=== PATIENT | female | born 1950 | race Caucasian/White ===

== ENCOUNTER 2023-07-19 11:52 | Outpatient (OUT) | payer MEDICARE, BC, SELFPAY ==
--- NOTE | 2023-07-19 11:53 | MM_ITS ---
Patient Name: VANESSA TERRELL MR#: [id number] : 1950 Exam Date: 07/19/2023 Ordering Doctor: DR PATRICIA SILVA D.O. RADIOLOGY REPORT PROCEDURE: MM TOMOSYNTHESIS SCREENING BI COMPARISON: MG MAMM JOSSELINE DIAG W CAD, 04/25/2019. MG MAMM SCREEN 3D JOSSELINE CAD, 07/07/2022. INDICATIONS: Screening Calculator Name NCI Breast Cancer Risk Assessment Tool 5 Year Breast Cancer Risk 1.80% Lifetime Breast Cancer Risk 4.10% Personal Breast Cancer No Personal Ovarian Cancer No Treatments None Family Cancers Aunt-maternal with breast cancer at age ~37. LOCATION: [facility] BREAST COMPOSITION: The breasts are almost entirely fatty. FINDINGS: DIAGNOSTIC CATEGORY 1--NEGATIVE. NO CHANGE FROM COMPARISON ASSESSMENT. Scattered benign-appearing nodules are present. Scattered benign-appearing calcifications are present. Scattered benign-appearing lymph nodes are present. RIGHT BREAST: No significant suspicious finding. LEFT BREAST: No significant suspicious finding. RECOMMENDATIONS: ROUTINE MAMMOGRAM AND CLINICAL EVALUATION IN 12 MONTHS. PLEASE NOTE: A NORMAL MAMMOGRAM DOES NOT EXCLUDE THE POSSIBILITY OF BREAST CANCER. A CLINICALLY SUSPICIOUS PALPABLE LUMP SHOULD BE BIOPSIED. Dictated by: Alex Harmon MD on 07/19/2023 at 13:32 Approved by: Alex Harmon MD on 07/19/2023 at 13:34
== END 2023-07-19 11:53 | disposition home or self-care (01) ==
LOC: MAMMO 11:52
PROVIDERS: PCP Internal Medicine; Visit Provider Internal Medicine
DX: Z12.31 Encounter for screening mammogram for malignant neoplasm of breast (principal); Z80.3 Family history of malignant neoplasm of breast
CPT/HCPCS: 77063; 77067

== ENCOUNTER 2024-08-06 12:54 | Outpatient (RCR) | payer MEDICARE, BC, SELFPAY | END 2024-09-17 10:35 | disposition home or self-care (01) | LOC: PT 12:54 | PROVIDERS: PCP Internal Medicine; Visit Provider Internal Medicine | DX: M25.561 Pain in right knee (principal); M25.562 Pain in left knee; R53.1 Weakness | CPT/HCPCS: 97110; 97140; 97161; 97530 ==

== ENCOUNTER 2024-08-28 08:45 | Outpatient (OUT) | payer MEDICARE, BC, SELFPAY ==
--- NOTE | 2024-08-28 | PCN_ITS ---
CARDIAC STRESS TEST Requesting Physician: < > Procedure Date: 08/28/2024 REASON FOR TEST: Shortness of breath and pre-op clearance. Patient presented to the lab in sinus rhythm. At baseline, the heart rate was 69 with a resting blood pressure of 134/77 mm/Hg. Resting EKG showed sinus rhythm with normal intervals and normal R-wave progression. With infusion of vasodilator, the peak heart rate achieved was 81 beats per minute, with a blood pressure of 134/77 mm/Hg, achieving 56% of the expected heart rate. With infusion of vasodilator, no ST segment changes of ischemia were noted. IMPRESSION: 1. No EKG evidence of ischemia on stress test. 2. Occasional PVCs noted. 3. Perfusion portion of the stress test to be dictated separately by radiologist. DEYVI
--- NOTE | 2024-08-28 08:15 | NM_ITS ---
Patient Name: VANESSA TERRELL MR#: [id number] : 1950 Exam Date: 08/28/2024 Ordering Doctor: DR PATRICIA SILVA D.O. RADIOLOGY REPORT PROCEDURE: NM MARION PERF SPECT REST STR COMPARISON: None. INDICATIONS: PRE PROCEDURE CARDIAC CLEARANCE, DYSPNEA, HYPERTENSION TECHNIQUE: Exam Description: Stress/Rest one day protocol gated SPECT Rest Imagin.0 mCi Tc-99m Cardiolite IV on 08/28/2024 Stress Imaging 29.4 mCi Tc-99m Cardiolite IV on 08/28/2024 Exercise Protocol: 0.4 mg Lexiscan given IV Heart Rate (bpm): Rest: 69 Max: 81 PMHR: 56 Blood Pressure: Rest: 134/75 Max: 134/75 Symptoms: Rest and peak stress ECG findings were pending and the exercise portion of the study was pending per attending physician [facility] . For more details please see separate cardiac stress test report. FINDINGS: QUALITY OF STUDY: Good PERFUSION DEFECT: None LOCATION: SIZE: SEVERITY: TYPE: WALL MOTION: Normal LV SIZE:EDV 56 mL. TID / TCD: 1.0 LVEF: Calculated EF 74%. SUMMARY: Myocardial perfusion imaging study CONCLUSION: Normal myocardial perfusion stress test without evidence of ischemia or infarction Normal left ventricular systolic function, ejection fraction 74% No transient ischemic dilatation, TID 1.0 EKG portion of stress test is reported separately Dictated by: Mohsen Lira MD on 08/28/2024 at 19:49 Approved by: Mohsen Lira MD on 08/28/2024 at 19:52
--- OUTSIDE RECORDS SUMMARY | 2024-08-28 08:47 | XMS_ITS | Referral Summary ---
Author Organization [facility] Address [address] [place] [address] Care Team Providers Care Senior Structural Engineer Name Role Phone Unavailable Primary Care Provider Unavailabl e Social History Tobacco Use Types Packs/Day Years Used Date Smoking Tobacco: Never Assessed Sex and Gender Information Value Date Recorded Sex Assigned at Not on file Gender Identity Not on file Sexual Orientation Not on file Plan of Treatment Upcoming Encounters Date Type Department Care Team (Late st Contact Info) Description 09/10/2024 11:45 AM EDT Office Visit [facility] [address] [place] [address] Cam Dan MD [address] [facility] [place] [address]
--- OUTSIDE RECORDS SUMMARY | 2024-08-28 08:49 | XMS_ITS | Clinical Summary ---
Author Organization [facility] Address [address] [place] [address] Care Team Providers Care Manager Developmental Name Role Phone Unavailable Primary Care Provider Unavailabl e Social History Tobacco Use Types Packs/Day Years Used Date Smoking Tobacco: Never Assessed Sex and Gender Information Value Date Recorded Sex Assigned at Not on file Gender Identity Not on file Sexual Orientation Not on file Plan of Treatment Upcoming Encounters Date Type Department Care Team ([facility] st Contact Info) Description 09/10/2024 11:45 AM EDT Office Visit [facility] at [facility] [address] [place] [address] Cam Dan MD [address] [facility] [place] [address] Health Maintenance Due Date Last Done Comments Medicare Annual Wellness (AWV) 1950 Depression Screening 1960 Adult Tetanus 1970 Zoster Vaccines (1 of 2) 1998 Fall Risk Screening 2013 Pneumococcal Vaccine: 65+ Years (2 of 2 - PPSV23 or PCV20) 10/18/2020 10/19/2019 COVID-19 Vaccine (4 - 2023-2 5 season) 2023 03/22/2021, 07/02/2020, 06/03/2020 Influenza Vaccine (Season Ended) 2024 01/02/2020 HIB Vaccines Aged Out No longer eligi ble based on patient's age to complete this topic HPV Vaccines Aged Out No longer eligi ble based on patient's age to complete this topic IPV Vaccines Aged Out No longer eligi ble based on patient's age to complete this topic Meningococcal B Vaccine Aged Out No l onger eligible based on patient's age to complete this topic Meningococcal Vaccine Aged Out No mac alejo eligible based on patient's age to complete this topic Rotavirus Vaccines Aged Out No longer eligible based on patient's age to complete this topic
--- OUTSIDE RECORDS SUMMARY | 2024-08-28 08:49 | XMS_ITS | Clinical Summary ---
Author Organization [employer] Address [id number] [address] [place] [address] Care Team Providers Care Bacteriology Technician Name Role Phone Elba Gomez DO, Charles L Primary Care Provider Allergies Active Allergy Reactions Criticality Noted Date Comments Sulfamethoxazole-Trimethoprim 2021 Medications cholecalciferol , vitamin D3, 400 units tablet Take 400 Units by mouth daily. Active pantoprazole (PROTONIX) 20 mg EC tablet Take 20 mg by mouth daily. Active ibuprofen (ADVIL,MOTRIN) 100 mg/5 mL suspension Take 200 mg by mouth every other day. Active acetaminophen (TYLENOL) 160 mg/5 mL solution Take 15 mg/kg by mouth every other day. Active rivaroxaban (XARELTO) 20 mg tablet tablet Take 20 mg by mouth daily. Active montelukast (SINGULAIR) 10 mg tablet 08/16/2021 Active metoprolol tartrate (LOPRESSOR) 25 mg tablet Take 25 mg by mouth in the morning and 25 mg before bedtime. 08/04/2021 Active cetirizine (ZyrTEC) 5 mg tablet Take 1 tablet (5 mg total) by mouth in the morning. Active sacubitril/vals gillian (ENTRESTO ORAL) Take by mouth. Active tamsulosin (FLOMAX) 0.4 mg capsule Take 1 capsule (0.4 mg total) by mouth nightly. 5 capsule 09/18/2022 Active Active Problems Problem Noted Date Diagnosed Date COVID-19 01/05/2022 Non-traumatic rhabdomyolysis 01/05/2022 Weakness 01/04/2022 Encounters Date Type Department Care Team Description 06/29/2024 Travel from Last 3 Months Family History Medical History Relation Name Comments Glaucoma Sister Relation Name Status Comments Sister Social History Tobacco Use Types Packs/Day Years Used Date Smoking Tobacco: Never Smokeless Tobacco: Never Alcohol Use Standard Drinks/Week Comments Yes 0 (1 standard drink = 0.6 oz pur e alcohol) rarely AUDIT-C Answer Date Recorded Q1: How often do you have a drink containing alc ohol? Never 08/10/2019 Average Number of Drinks Not on file 020 Frequency of Binge Drinking Not on file 07/20 Childcare Answer Date Recorded Childcare Unknown 08/30/2018 Employment Answer Date Recorded Employment Unknown 08/30/2018 Hunger Screening Answer Date Recorded Within the past 12 months we worried whether our food would run out before we got money to buy more. Never True 02/14/2024 Within the past 12 months th e food we bought just didn't last and we didn't have money to get more. Never True 02/14/2024 Purpose - Life Answer Date Recorded Purpose and direction in life Unknown Comments No Sex and Gender Information Value Date Recorded Sex Assigned at Female 06/29/2024 9:33 AM EDT Legal Sex Female 11:42 AM EDT Gender Identity Female 06/29/2024 9:33 AM EDT Sexual Orientation Don't know 06/29/2024 9: 33 AM EDT Last Filed Vital Signs Vital Sign Reading Time Taken Comments Blood Pressure 167/77 02/14/2024 3:35 PM EST Pulse 70 02/14/2024 3:35 PM EST Temperature 36.6 C (97.8 F) 02/14/2024 3:35 PM EST Respiratory Rate 18 02/14/2024 3:35 PM EST Oxygen Saturation 98% 02/14/2024 3:35 PM EST Inhaled Oxygen Concentration - - Weight 113.4 kg (250 lb) 02/14/2024 3:35 PM EST Height 160 cm (5' 3 ) 02/14/2024 3:35 PM EST Body Mass Index 44.29 02/14/2024 3:35 PM EST Plan of Treatment Health Maintenance Due Date Last Done Comments Depression Screening 1960 DTaP,Tdap and Td Vaccines (1 - Tdap) 08/07/1967 Zoster (Shingles) Vaccine (1 of 2) 1998 Fall Risk Screening 2013 COVID-19 Vaccine (2023-2 5 season) 2023 03/22/2021, 07/02/2020, 06/03/2020 Influenza Vaccine 11/19/2024 01/02/2020 Tobacco Screening 02/13/2025 02/14/2024 Goals Goal Patient Goal Type Associated Problems Recent Progress Patient-Stated? Author Home General Yes Solange Arnold LSW Note: Evaluation of progress towards goal: Safe dc home with C and family support. Medical Devices Implanted Type Area Souvenir And Novelty Maker Device Identifier Shelf Expiration Date Model / Serial / Lot Lens Iol Ultrasert 17.5d - [id number] - [id number] Implanted:Qty: 1 on 08/21/2019 by Julia Quiñonez MD at [facility] Lens [employer] 02/19/2021 [id number] 17.5 / [id number] / NA Lens Iol Ultrasert 17.0d - [id number] - [id number] Implanted:Qty: 1 on 09/04/2019 by Julia Quiñonez MD at [facility] Lens Right: Eye [employer] 11/18/2020 [id number] 17.0 / [id number] / NA Insurance MEDICARE [facility] Advance Directives * Full Code (Latest Code Status on File) Date Activated Date Inactivated Comments 01/04/2022 4:08 PM 01/06/2022 3:26 PM Care Teams Bacteriology Technician Relationship Specialty Start Date End Date Fransisco Arreola Jr., [address] [place] [address] PCP - General Internal Medicine 08/17/19
--- OUTSIDE RECORDS SUMMARY | 2024-08-28 08:58 | XMS_ITS | CCD ---
Author Organization [facility] Care Team Providers Care Composition Siding Worker Name Role Phone SHIRA, DR GOMEZ Admitting Unavailable VALONE, DR GOMEZ Attending Unavailable VALONE, DR GOMEZ Primary Care Unavailable VALONE, DR GOMEZ Consulting Unavailable ZIEBER, DR JIM Hammond Consulting Unavailable HEIDIONE JR, FRANSISCO Marcus Primary Care Unavailable HEIDIONE JRFRANSISCO Referring Unavailable HEIDIONE JR, FRANSISCO Marcus Primary Care Unavailable Delaney Gomez, Trevin Kendall Attending Unavailabl e Shira, Fransisco Marcus Referring Unavailable Shira, Fransisco Marcus Primary Care Unavailable Delaney Gomez, Trevin Kendall Attending Unavailabl guilherme Silva, Fransisco Marcus Referring Unavailable Shira, Fransisco Marcus Primary Care Unavailable Allergies Allergy Classification Reported Allergen(s) Allergy Type Date of Onset Reaction(s) Facility (1 source) Sulfamethoxazole / Trimethoprim Drug Allergy [facility] Repository (1 source) Sulfamethoxazole / Trimethoprim; Translations: [SULFAMETHOXAZOLE-TR IMETHOPRIM] Drug Allergy 2 [facility] Repository Problems Active Problems Problem Classification Problem Date Documented Da te Episodic/Chronic E Codes: Fall (1 source) Fall Onset: 02-14-2024 Osteoarthritis (1 source) Unilateral primary osteoarthritis, left knee; Translations: [Unilateral primary osteoarthritis, left knee] Onset: 02-14-2024 Chronic Other connective tissue disease (1 source) Repeated falls; Translations: [Repeated falls] Onset: 06-29-2024 Episodic Other screening for suspected conditions (not mental disorders or infectious disease) (4 sources) Encounter for screening mammogram for malignant neoplasm of breast; Translations: [ENC SCR MAMMO MALIG NEOPLASM BREAST] Onset: 07-07-2022 Episodic Residual codes; unclassified (1 source) Family history of malignant neoplasm of breast; Translations: [FAMILY HX MALIG NEOPLASM OF BREAST] Onset: 07-12-2022 Episodic Unclassified (1 source) EMS Onset: 02-14-2024 Past or Other Problems Problem Classification Problem Date Documented Da te Episodic/Chronic Open wounds of extremities (1 source) Laceration without foreign body, left lower leg, initial encounter; Translations: [Laceration without foreign body, left lower leg, initial encounter] Onset: 02-14-2024 Episodic Other non-traumatic joint disorders (1 source) Effusion, left knee; Translations: [Effusion, left knee] Onset: 02-14-2024 Episodic Results Test Name Value Interpretation Reference Range Facil ity XR KNEE LT 1 OR 2 VWSon 01-20 XR KNEE LT 1 OR 2 VWS XR KNEE LT 1 OR 2 VWS XR KNEE LT 1 OR 2 VWS CLINICAL HISTORY: History of fall. Pain COMPARISON: None. FINDINGS: Frontal and lateral views are obtained. Soft tissues: Mild fullness in the suprapatellar bursa suggesting small suprapatellar effusion. Osseous structures: No acute fracture. No destructive osseous lesion. Joints: No dislocation or malalignment. Mild medial subluxation of the femur in relation to the tibia with joint space narrowing more prominent in the medial than lateral compartment and also in the patellofemoral compartment with bony spurring mainly seen in the medial tibial plateau, femoral condyle and articular patellar surface. IMPRESSION: * No acute fracture or malalignment. * Severe tricompartment knee arthritis with small suprapatellar effusion. Finalized by Mike Barth MD on 02/14/2024 4:25 PM [facility] MG MAMM SCREEN 3D JOSSELINE CADon 07-07-2022 MG MAMM SCREEN 3D JOSSELINE CAD Patient: VANESSA TERRELL Exam Date: 07/07/2022 : 1950 Gender:F Ordering : DR FRANSISCO SILVA D.O. Admission #: [id number] Family : Order #: [id number] CLICK HERE TO VIEW EXAM RADIOLOGY REPORT PROCEDURE: MAMMOGRAM SCREENING 3D BILATERAL CAD COMPARISON: MG MAMM JOSSELINE DIAG W CAD, 04/25/2019. MG MAMM SCREEN JOSSELINE W CAD, 08/13/2016. MG MAMM JOSSELINE SCRN W CAD DIG, 11/09/2013. DIGITIZED_MAMMO, 09/07/2006. INDICATIONS: Screening mammography Calculator Name NCI Breast Cancer Risk Assessment Tool 5 Year Breast Cancer Risk 1.80% Lifetime Breast Cancer Risk 4.40% Personal Breast Cancer No Personal Ovarian Cancer No Treatments None Family Cancers Aunt-maternal with breast cancer at age 37. LOCATION: [facility] BREAST COMPOSITION: Almost entirely fatty. FINDINGS: DIAGNOSTIC CATEGORY 1--NEGATIVE. RIGHT BREAST: No significant suspicious finding. No significant change has occurred. LEFT BREAST: No significant suspicious finding. No significant change has occurred. RECOMMENDATIONS: ROUTINE MAMMOGRAM AND CLINICAL EVALUATION IN 12 MONTHS. PLEASE NOTE: A NORMAL MAMMOGRAM DOES NOT EXCLUDE THE POSSIBILITY OF BREAST CANCER. A CLINICALLY SUSPICIOUS PALPABLE LUMP SHOULD BE BIOPSIED. Dictated by: Jim Roque M.D. on 07/08/2022 at 13:06 Approved by: Jim Roque M.D. on 07/08/2022 at 13:14 [facility] Encounters Encounter Date Encounter Type Care Provider Facility Start: 08-15-2024 ambulatory [facility] Start: 08-15-2024 ambulatory [facility] Start: 06-29-2024 ambulatory FRANSISCO SILVA JR [facility] Start: 02-14-2024 End: 02-14-2024 Emergency department patient visit FRANSISCO SILVA JR [facility] Start: 07-07-2022 End: 07-08-[address] FRANSISCO SILVA Facility: Payers Date Payer Category Payer Medicare [id number] 1961 Unknown [id number] 1950 Unknown [id number] 1950 Unknown [id number] 1950 Unknown [id number] 1950 Unknown [id number] Summary Purpose Family History No Family History Records FoundNo Family History Records FoundNo Family History Records Found Advance Directives No Advanced Directives Records FoundNo Advanced Directives Records FoundNo Advanced Directives Records Found Additional Source Comments INFORMATION SOURCE (unrecogn ized section and content) DATE CREATED AUTHOR 07/12/2022 [facility] DATE CREATED AUTHOR AUTHOR'S ORGANIZ ATION 07/13/2024 [facility] DATE CREATED AUTHOR AUTHOR'S ORGANIZ ATION 08/18/2024 [facility] FOR RECORDS PERTAINING TO PATIENTS WHO ARE OR HAVE BEEN ENROLLED IN A CHEMICAL DEPENDENCY/SUBSTANCEABUSE PROGRAM, SOME INFORMATION MAY BE OMITTED. This clinical summary was aggregated from multiple sources. Caution should be exercised in using it in the provision of clinical care. This summary normalizes information from multiple sources, and as a consequence, information in this document may materially change the coding, format and clinical context of patient data. In addition, data may be omitted in some cases. CLINICAL DECISIONS SHOULD BE BASED ON THE PRIMARY CLINICAL RECORDS. [facility]. provides no warranty or guarantee of the accuracy or completeness of information in this document.
--- NOTE | 2024-08-28 10:29 | PC.NURSE ---
Nursing Note Cardiac Stress Test Reviewed: Medication, allergies and patient history reviewed. Stress Test: [x ] Patient tolerated stress test well. [ ] Patient unable to tolerate walking on treadmill. Switched to Lexiscan stress test. [x ] No chest pain noted per patient [ ] Chest pain that resolved prior to leaving stress lab. [x ] No dyspnea noted. [ ] Dyspnea that resolved prior to leaving stress lab. [x ] Patient left stress lab asymptomatic and hemodynamically stable. [ ] Patient taken to the Emergency Room due to non-resolving symptoms following stress test. [ ] Patient achieved target heart rate. [ ] Patient unable to achieve target heart rate. [ ] Aminophylline administered as reversal agent to Lexiscan (Regadenoson). [ ] Nitro administered. Nursing Comments:Pt had Lexiscan test done. No issues noted. Pt had Headache that resolved within 2 minutes. No CP and no SOB. Pt was taken to cafeteria in wheelchair for breakfast prior to second set of images.
[2024-08-28] MEDS: REGADENOSON 0.4 MG/5 ML SYRINGE IV (10:31)
== END 2024-08-28 08:46 | disposition home or self-care (01) ==
LOC: NM 08:45
PROVIDERS: PCP Internal Medicine; Visit Provider Internal Medicine
DX: R06.02 Shortness of breath (principal); R53.83 Other fatigue; I10 Essential (primary) hypertension
CPT/HCPCS: 78452; 93017; A9500; J2785